=== PATIENT | male | born 2000 | race Caucasian/White ===

== ENCOUNTER 2020-09-02 13:16 | Inpatient (IN) | payer MEDICAID, SELFPAY ==
[~2020-09-02] VITALS: Ht 160 cm; Wt 53.5 kg
--- NOTE | 2020-09-02 13:20 | NUR ---
PATIENT W/C ASSISTED TO BED 1
--- NOTE | 2020-09-02 13:24 | NUR ---
Dr. Wagner is evaluating patient at bedside.
--- NOTE | 2020-09-02 13:25 | NUR ---
Marivel (Mom): [phone] Irlanda (Sister): [phone]
--- NOTE | 2020-09-02 13:25 | NUR ---
20 y/o m brought in by sister with c/c lethargy, SOB, low back pain. Pt's sister states at 0900, he began experiencing lower back pain. At 1200, sister rechecked up on patient and noticed he was more lethargic and slurred his words. Pt's sister also states associated SOB. Pt sister states he is noncompliant with his insulin medication. Pt presents A&Ox3, lethargic. Lung sounds CTA. air sampling and monitoring in place. Accuchek reading "HI." Bed locked in lowest position, side rails x 1. Sister at bedside. PMH: Type I DM Meds: Insulin Novalog NKA SX: denies
[2020-09-02] MEDS ORDERED: ONDANSETRON 4 MG/2 ML VIAL IVP STA (13:29)
[2020-09-02] MEDS ORDERED: NACL 0.9% 3,000 ML IV ONE (13:30)
[2020-09-02 13:32] VITALS: BP 110/75
--- NOTE | 2020-09-02 13:39 | NUR ---
Lab at bedside
--- NOTE | 2020-09-02 13:39 | NUR ---
EKG at bedside
[2020-09-02 13:49] LABS: HEMATOCRIT 54.1 % (36-52); HEMOGLOBIN 16.1 g/dL (12.0-18.0); MEAN CORPUSCULAR HEMOGLOBIN 31 pg (27-31); MEAN CORPUSCULAR HGB CONC 30 g/dL (33-37); MEAN CORPUSCULAR VOLUME 102.8 fL (80-94); PLATELET COUNT (AUTO) 426 K/uL (140-450); RED BLOOD CELL COUNT(AUTO) 5.26 MIL/uL (4.20-6.10); RED CELL DISTRIBUTION WIDTH 15.4 % (11.6-13.7)
[2020-09-02] MEDS ORDERED: INSULIN REGULAR, HUMAN 100 UNIT/ML VIAL IV STA (14:12)
[2020-09-02] MEDS ORDERED: SODIUM BICARBONATE 8.4% PFS 50 MEQ/50 ML SYR IVP STA (14:12)
[2020-09-02 14:14] LABS: ALBUMIN 3.9 g/dL (3.4-5.0); ANION GAP 41.2 (8-16); ASPARTATE AMINOTRANSFERASE 17 U/L (15-37); CHLORIDE 92 mmol/L (98-107); CREATININE 2.2 mg/dL (0.6-1.3); GFR ARICAN-AMERICAN 49 mL/min (>90); POTASSIUM 4.4 mmol/L (3.5-5.1); SALICYLATE 5.5 mg/dL (2.8-20.0); SODIUM SERUM 135 mmol/L (136-145); TOTAL BILIRUBIN 0.4 mg/dL (0.0-1.0); UREA NITROGEN, BLOOD 30 mg/dL (7-18); WHITE BLOOD COUNT (AUTO) 40.2 K/uL (4.8-10.8)
[2020-09-02] MEDS: DEXT 5% / NACL 0.45% 1,000 ML IV SCH (14:15)
[2020-09-02] MEDS ORDERED: INSULIN REGULAR, HUMAN 100 UNIT in NACL 0.9% 100 ML IV SCH ×4 (14:15→15:10)
--- NOTE | 2020-09-02 14:15 | NUR ---
Patient presents with both eyes closed, awakes to verbal stimuli. Pt accompanied by sister at bedside. secured entrance monitor in place. Equal chest rise and fall. Bed locked in lowest position, side rails x 1, call light in reach.
[2020-09-02] MEDS ORDERED: PIPERACILLIN/TAZOBACTAM 3.375 GM in DEXTROSE 5% 50 ML IV STA (14:16)
[2020-09-02] MEDS ORDERED: VANCOMYCIN 1,000 MG in DEXTROSE 5% 250 ML IV ONE (14:20)
--- NOTE | 2020-09-02 14:20 | NUR ---
Dr. Wagner made aware of critical lab values: CO2 6.2, Glucose 946, Lactic Acid 8.7.
[2020-09-02 14:21] LABS: CARBON DIOXIDE 6.2 mmol/L (21-32); GLUCOSE 946 mg/dL (74-106)
--- NOTE | 2020-09-02 14:23 | NUR ---
Xray at bedside
[2020-09-02 14:29] LABS: LYMPHOCYTES % (MANUAL) 20 % (20-46); METAMYELOCYTES % 1 % (0-0); MONOCYTES % (MANUAL) 1 % (5-12); PROMYELOCYTES % 2 % (0-0)
[2020-09-02] MEDS ORDERED: NACL 0.9% 2,000 ML IV SCH ×2 (14:35→15:00)
[2020-09-02 14:45] LABS: ACETAMINOPHEN < 0.5 ug/ml (10-30)
[2020-09-02] MEDS ORDERED: PIPERACILLIN/TAZOBACTAM 3.375 GM VIAL IV ONE ×2 (14:46→20:55)
[2020-09-02 14:52] LABS: ACETONE, SERUM MODERATE (NEGATIVE)
[2020-09-02] MEDS ORDERED: LORazepam 2 MG/ML VIAL IM/IVP PRN (15:00)
[2020-09-02] MEDS ORDERED: HYDROcodone/APAP 5/325 MG 1 TAB TAB PO PRN (15:00)
[2020-09-02] MEDS ORDERED: DOCUSATE SODIUM 100 MG GELCAP PO PRN (15:00)
[2020-09-02] MEDS ORDERED: ZOLPIDEM 5 MG TAB PO PRN (15:00)
[2020-09-02] MEDS ORDERED: MORPHINE SULFATE 2 MG/ML SYR IVP PRN (15:00)
[2020-09-02] MEDS ORDERED: ONDANSETRON 4 MG/2 ML VIAL IM/IVP PRN (15:00)
[2020-09-02] MEDS ORDERED: ACETAMINOPHEN 325 MG TAB PO PRN (15:00)
[2020-09-02] MEDS ORDERED: VANCOMYCIN PER PHARMACY MC PRN (15:05)
--- NOTE | 2020-09-02 15:09 | NUR ---
tap and die maker technician transported patient via gurney to CT.
--- NOTE | 2020-09-02 15:09 | NUR ---
Gilbert barreto in [facility] - 09/02/20 at 1509 by CHANDLER Xray transported patient via
[2020-09-02] MEDS ORDERED: DEXTROSE 50% 50 ML SYR IVP PRN (15:10)
--- NOTE | 2020-09-02 15:20 | NUR ---
Patient returned from CT via gurney and placed back onto rail bender.
--- NOTE | 2020-09-02 15:25 | NUR ---
Patient is resting in semi-fowlers position. youth nutritional monitor remains in place. Respirations even/unlabored; patient denies any pain or nausea at this time. Bed locked in lowest position, side rails x 1, call light in reach. Sister remains at bedside.
[2020-09-02] MEDS: BLOOD GLUCOSE MONITORING 1 DEV DEV FS SCH ×9 (15:38→23:09)
--- NOTE | 2020-09-02 15:45 | NUR ---
INFORMED HOUSE SUP OF ORDER OF PICC LINE FOR PATIENT.
[2020-09-02] MEDS ORDERED: VANCOMYCIN 1,000 MG in DEXTROSE 5% 250 ML IV SCH (16:00)
--- NOTE | 2020-09-02 16:00 | NUR ---
Urine sample collected, walked to lab and handed to linette Prince tech.
--- NOTE | 2020-09-02 16:05 | NUR ---
PICC line signature obtained for consent form.
--- NOTE | 2020-09-02 16:05 | NUR ---
Patient presents with both eyes open, semi-fowlers in position of comfort. Equal chest rise and fall. quality assurance monitor body in place. Bed locked in lowest position, side rails x 1, call light in reach. Sister at bedside.
--- NOTE | 2020-09-02 16:05 | NUR ---
Urine void discarded 900mL: clear/straw.
[2020-09-02] MEDS ORDERED: VANCOMYCIN 1,000 MG VIAL ONE (16:06)
[2020-09-02 16:07] LABS: MAGNESIUM 3.4 mg/dL (1.8-2.4)
[2020-09-02 16:19] LABS: PHOSPHORUS 14.2 mg/dL (2.5-4.9)
[2020-09-02 16:21] LABS: APPEARANCE,URINE SL CLOUDY (CLEAR); BILIRUBIN,URINE NEGATIVE (NEGATIVE); BLOOD, URINE TRACE-I (NEGATIVE); COLOR,URINE YELLOW (YELLOW); LEUKOCYTE ESTERASE ,URINE NEGATIVE (NEGATIVE); NITRITE, URINE NEGATIVE (NEGATIVE); PH,URINE 5.5 (5.0-9.0); UGLUCOSE 3+ (NEGATIVE)
[2020-09-02 16:23] LABS: PROTHROMBIN TIME 9.5 secs (10.8-13.4)
[2020-09-02 16:42] LABS: FINE GRANULAR CASTS,URINE 0-10 /LPF (None Seen); RBC,URINE 0-5 /HPF (0-5); WBC,URINE 0-5 /HPF (0-5)
[2020-09-02 16:43] LABS: BARBITURATE, URINE NEGATIVE ng/ml (NEG <=200); BENZODIAZEPINE, URINE NEGATIVE ng/mL (NEG <=200); CANNABINOID, URINE NEGATIVE ng/mL (NEG <=50); COCAINE, URINE NEGATIVE ng/mL (NEG <=300); OPIATE, URINE NEGATIVE ng/mL (NEG <=2000); PHENCYCLIDINE SCREEN,URINE NEGATIVE ng/mL (NEG <=25)
--- NOTE | 2020-09-02 16:55 | NUR ---
Lab at bedside
[2020-09-02] MEDS: NACL 0.9% 1,000 ML IV SCH ×3 (17:00→20:53)
--- NOTE | 2020-09-02 17:00 | NUR ---
Staci khanna collected, left with linette Prince in ER.
--- NOTE | 2020-09-02 17:03 | NUR ---
Dr. Tao is evaluating patient at bedside.
--- NOTE | 2020-09-02 17:05 | NUR ---
PICC line setup tray setup at bedside.
--- NOTE | 2020-09-02 17:06 | NUR ---
Patient is resting in semi-fowlers position. Pt accompanied by sister at bedside. Urinal in place. equalizer operator in place. Equal chest rise and fall. Bed locked in lowest position, side rails x 1, call light in reach.
--- NOTE | 2020-09-02 17:16 | NUR ---
PICC line nurse is at bedside performing procedure.
--- NOTE | 2020-09-02 17:33 | NUR ---
Xray at bedside to confirm placement.
[2020-09-02 17:35] LABS: ANION GAP 35.3 (8-16); CREATININE 1.5 mg/dL (0.6-1.3); POTASSIUM 4.8 mmol/L (3.5-5.1)
[2020-09-02 17:40] LABS: CARBON DIOXIDE 6.5 mmol/L (21-32)
--- NOTE | 2020-09-02 17:40 | NUR ---
Critical lab values received: Lactic acid 4.3, Glucose 550, Carbon dioxide 6.5. Dr. Freeman made aware via text message.
[2020-09-02] MEDS: CALCIUM ACETATE 667 MG TAB PO SCH (17:51)
--- NOTE | 2020-09-02 17:55 | NUR ---
Urine voided discard: 1100mL, clear/straw.
[2020-09-02 18:11] LABS: THYROID STIMULATING HORMONE 0.54 uIU/mL (0.34-3.74)
--- NOTE | 2020-09-02 18:28 | NUR ---
Patient presents with both eyes open, semi-fowlers in position of comfort. Equal chest rise and fall. gambling monitor in place. Bed locked in lowest position, side rails x 1, call light in reach. Mother at bedside.
[2020-09-02] MEDS ORDERED: LANTUS SUBQ (18:58)
[2020-09-02] MEDS ORDERED: SLIDE SUBQ (18:58)
--- NOTE | 2020-09-02 19:14 | NUR ---
Accuchek 339; insulin drip titrated from 5 Units/hr to 4 Units/hr.
--- NOTE | 2020-09-02 19:14 | NUR ---
Report and transfer of care given to SHANTI Cobian.
[2020-09-02 20:20] VITALS: BP 119/66
--- NOTE | 2020-09-02 20:20 | NUR ---
Patient will be admitted to care of dr. de la cruz. Admited to ICU. Will go to room3. Belongings list completed. Report to Aliza (joel) given.
--- NOTE | 2020-09-02 20:20 | NUR ---
ADMITTED PATIENT FROM ED VIA GOURNEY AWAKE ALERT AND ORIENTED ON INSULIN DRIP INFUSING THRU A RIGHT ANTECUBITAL IV AT 4 UNITS/HR.PATIENT WITH MAUNTENANCE IV INFUSING WELL THRU HIS PERIPHERAL IV ON RIGHT AC.PATIENT HAS A NEW PICC LINE ON RIGHT UPPER ARM.PATIENT BLOOD SUGAR IS CHECKED AND ITS 287MG/DL.PATIENT IS IN SINUS TACH IS AFEBRILKE AND IS SATURATING 100% ON ROOM AIR.PATIENT DENIES NAUSEA AT THIS TIME ATND PATIENT IS NPOI.DKA PROTOCOL COMMENCED AND ANOTHER IV OF DO.45NS STARTEWD WELL.
[2020-09-02 21:00] VITALS: BP 131/78
[2020-09-02] MEDS: PIPERACILLIN/TAZOBACTAM 3.375 GM in DEXTROSE 5% 50 ML IV SCH (21:00)
[2020-09-02 22:00] VITALS: BP 118/64
[2020-09-02 23:00] VITALS: BP 118/79
[2020-09-03] VITALS (23 sets, daily range): BP systolic 103–141; BP diastolic 67–88
--- NOTE | 2020-09-03 | NUR ---
PATIENT BLOOD SUGAR IS LESS THAN 200 AND MAINTENANCE IV IS D0.45NS IS INFUSING.PATIENT DENIES NAUSEA DOZING AND LOOKING COMFORTABLE.
[2020-09-03 00:38] LABS: ANION GAP 22.2 (8-16); CARBON DIOXIDE 13.3 mmol/L (21-32); CREATININE 1.1 mg/dL (0.6-1.3); POTASSIUM 3.5 mmol/L (3.5-5.1)
[2020-09-03 00:43] LABS: MAGNESIUM 1.7 mg/dL (1.8-2.4); PHOSPHORUS 2.1 mg/dL (2.5-4.9)
[2020-09-03] MEDS: BLOOD GLUCOSE MONITORING 1 DEV DEV FS SCH ×22 (01:02→23:20)
[2020-09-03] MEDS: NACL 0.9% 1,000 ML IV SCH ×6 (01:10→21:10)
[2020-09-03] MEDS: DEXT 5% / NACL 0.45% 1,000 ML IV SCH ×3 (02:21→21:46)
[2020-09-03] MEDS ORDERED: PIPERACILLIN/TAZOBACTAM 3.375 GM VIAL IV ONE (05:11)
[2020-09-03] MEDS: PIPERACILLIN/TAZOBACTAM 3.375 GM in DEXTROSE 5% 50 ML IV SCH ×3 (05:40→20:34)
[2020-09-03 05:59] LABS: ANION GAP 18.7 (8-16); CARBON DIOXIDE 15.6 mmol/L (21-32); POTASSIUM 3.3 mmol/L (3.5-5.1)
[2020-09-03 06:04] LABS: MAGNESIUM 1.7 mg/dL (1.8-2.4); PHOSPHORUS 2.3 mg/dL (2.5-4.9)
--- NOTE | 2020-09-03 07:30 | NUR ---
RECEIVED BEDSIDE REPORT FROM TRAILHEAD CONSTRUCTION WORKER NURSE. PATIENT IN BED, LAYING ON LEFT SIDE. AWAKE AND ALERT, ANSWERED TO NAME. URINAL NEAR BED. BAM PICC, LAC 20G, RAC 20, CLEAN DRY INTACT. INFUSING: D5 0.45% NS @ 200 ML/HR, INSULIN @ 0.05 UNIT/KG/HR. DKA PROTOCOL IN PLACE. BED IN LOW POSITION, CALL LIGHT WITHIN REACH. SAFETY MEASURES IN PLACE.
[2020-09-03] MEDS: CALCIUM ACETATE 667 MG TAB PO SCH ×3 (08:03→17:15)
--- NOTE | 2020-09-03 08:19 | NUR ---
ADMINISTERED SCHEDULED MEDS PER MD ORDER. MED EDUCATION PROVIDED, PATIENT VERBALIZES UNDERSTANDING. PO MEDS TOLERATED WELL, WITH SIPS OF WATER. PATIENT ASSISTED WITH REPOSITIONING, MINOR ASSISTANCE NEEDED. MORNING HYGIENE PROVIDED, CHANGED ALL DIRTY LINEN. BED IN LOW POSITION, SAFETY MEASURES IN PLACE.
--- NOTE | 2020-09-03 08:24 | NUR ---
PATIENT HAS BEEN SCREENED AND CATEGORIZED HIGH NUTRITION RISK. PATIENT WILL BE SEEN WITHIN 1-2 DAYS OF ADMISSION. 09/03/20-09/04/[address]
[2020-09-03 09:06] LABS: T4 (THYROXINE) 5.9 ug/dL (4.5-12.0)
[2020-09-03] MEDS ORDERED: BLOOD GLUCOSE MONITORING 1 DEV DEV FS SCH (09:30)
[2020-09-03] MEDS ORDERED: INSULIN REGULAR, HUMAN 100 UNIT in NACL 0.9% 100 ML IV SCH ×2 (09:30)
[2020-09-03] MEDS ORDERED: DEXTROSE 50% 50 ML SYR IVP PRN (09:30)
[2020-09-03] MEDS: VANCOMYCIN 750 MG in NACL 0.9% 250 ML IV SCH ×2 (09:51→21:39)
[2020-09-03] MEDS ORDERED: POTASSIUM CHL 40 MEQ/ D5-1/2NS 1,000 ML IV SCH (11:15)
[2020-09-03] MEDS ORDERED: POTASSIUM CHL 20 MEQ/D5-1/2NS 1,000 ML IV SCH (11:15)
--- NOTE | 2020-09-03 11:36 | NUR ---
NS NOT ADMINISTERED AT THIS TIME. RUNNING D5 0.45% NS PER DKA PROTOCOL.
[2020-09-03 11:37] LABS: ANION GAP 15.1 (8-16); CARBON DIOXIDE 19.2 mmol/L (21-32); CREATININE 1.2 mg/dL (0.6-1.3); POTASSIUM 3.3 mmol/L (3.5-5.1)
[2020-09-03 11:40] LABS: MAGNESIUM 1.7 mg/dL (1.8-2.4); PHOSPHORUS 2.6 mg/dL (2.5-4.9)
[2020-09-03] MEDS ORDERED: POTASSIUM CHL 20 MEQ/D5-1/2NS 1,000 ML IV ONE ×2 (11:50→16:00)
[2020-09-03] MEDS ORDERED: MAG SULF 2000 MG/WATER PREMIX 50 ML IV SCH (12:00)
[2020-09-03] MEDS ORDERED: KCL 20 MEQ/WATER INJ PREMIX 200 ML IV ONE (12:15)
--- NOTE | 2020-09-03 13:23 | NUR ---
09/03/20 RD INITIAL ASSESSMENT COMPLETED PLEASE REFER TO NUTRITION ASSESSMENT UNDER CARE ACTIVITY FOR ESTIMATED NUTRITIONAL NEEDS. 1. CONTINUE NPO PER DKA PROTOCOL 2. RD PROVIDED NUTRITION EDUCATION ON CONSISTENT CARBOHYDRATE INTAKE 3. ADVANCE TO [facility] [address] WHEN MEDICALLY STABLE 4. RD TO FOLLOW-UP 2-3 DAYS, HIGH RISK VINI JOHNSON RD
--- NOTE | 2020-09-03 14:00 | NUR ---
SOCIAL WORK NOTE: HERB WAS UNABLE TO MEET PATIENT AT BEDSIDE. HERB CONTACTED PATIENT'S SISTER ALIA SMALLS [phone] AND LEFT VM TO COMPLETE ASSESSMENT. HERB WILL FOLLOW UP. Addendum: 09/04/20 at 1214 by Blair Anderson SS HERB ATTEMPTED TO CONTACT PATIENT'S SISTER, ALIA SMALLS [phone] TO COMPLETE ASSESSMENT. HERB LEFT VM AND WILL FOLLOW UP.
[2020-09-03] MEDS ORDERED: POTASSIUM CHL 20 MEQ / DEXT 5% 1,000 ML IV ONE (16:00)
--- NOTE | 2020-09-03 17:30 | NUR ---
ADMINISTERED SCHEDULED MEDS PER MD ORDER. MED EDUCATION PROVIDED, PATIENT VERBALIZES UNDERSTANDING. MEDS TAKEN WELL WITH SIPS OF WATER. PATIENT ASSISTED TO TURN IN BED, SELF TURN, MINIMAL ASSISTANCE REQUIRED. Addendum: 09/03/20 at 1731 by Fernanda Smyth RN RN Amended: Links added.
--- NOTE | 2020-09-03 19:10 | NUR ---
CHECK PATIENT BLOOD SUGAR. PATIENT BLOOD SUGAR 142. PATIENT IS NOW HAVE A 4 CONSECUTIVE BLOOD SUGAR IN RANGE OF 90-150. PER PROTOCOL ONCE IT STABLE AND HAD A 4 CONSECUTIVE BLOOD SUGAR RANGE IN 90-150, BLOOD SUGAR MONITORING WILL BE Q2HR. NEXT BLOOD SUGAR MONITORING WILL BE AT 2110. Addendum: 09/04/20 at 0000 by Raj Pisano RN WRONG TIME. CORRECT TIME 1929
--- NOTE | 2020-09-03 19:20 | NUR ---
PATIENT ENDORSED TO GLUING MACHINE OFFBEARER NURSE FOR CONTINUITY OF CARE. PATIENT STABLE AT THIS TIME.
--- NOTE | 2020-09-03 19:21 | NUR ---
PATIENT ENDORSED TO EXTRUSION DIE REPAIR MANAGER NURSE FOR CONTINUITY OF CARE. PATIENT STABLE AT THIS TIME.
--- NOTE | 2020-09-03 19:25 | NUR ---
RECEIVED BEDSIDE REPORT FROM DAY SHIFT NURSE. PATIENT IS AWAKE, ALERT, AND COOPERATIVE. RESPIRATION EVEN UNLABORED ON ROOM AIR. NO DISTRESS NOTED. SKIN IS WARM AND DRY. RIGHT UPPER ARM PICC LINE NOTED WITH INSULIN DRIP RUNNING @ 0.05UNITS/KG/HR (3ML/HR), D5-1/2NS WITH KCL 20 MEQ RUNNING @ 250CC/HR AND POTASSIUM CHL 20MEQ RUNNING @ 50CC/HR. PLAN OF CARE WAS DISCUSSED. ALL SAFETY MEASURES IN PLACE. BED IS AT LOW POSITION. CALL LIGHT WITHIN REACH. WILL CONTINUE TO MONITOR
--- NOTE | 2020-09-03 20:35 | NUR ---
ALL SCHEDULED MEDS WERE GIVEN PER ORDER. WILL CONTINUE TO MONITOR
--- NOTE | 2020-09-03 21:40 | NUR ---
SCHEDULED VANCO IV GIVEN PER ORDER. WILL CONTINUE TO MONITOR
[2020-09-04] VITALS (12 sets, daily range): BP systolic 116–135; BP diastolic 69–90
--- NOTE | 2020-09-04 00:30 | NUR ---
PT SLEEPING. RESPIRATION EVEN UNLABORED ON ROOM AIR. NO DISTRESS NOTED. WILL CONTINUE TO MONITOR
[2020-09-04] MEDS: BLOOD GLUCOSE MONITORING 1 DEV DEV FS SCH ×8 (01:11→20:23)
[2020-09-04] MEDS: NACL 0.9% 1,000 ML IV SCH ×3 (02:10→12:46)
[2020-09-04] MEDS: DEXT 5% / NACL 0.45% 1,000 ML IV SCH (03:17)
[2020-09-04] MEDS: PIPERACILLIN/TAZOBACTAM 3.375 GM in DEXTROSE 5% 50 ML IV SCH ×3 (04:56→21:43)
--- NOTE | 2020-09-04 05:02 | NUR ---
IV ZOSYN ABX GIVEN PER ORDER. WILL CONTINUE TO MONITOR
[2020-09-04 06:17] LABS: ANION GAP 11.6 (8-16); CARBON DIOXIDE 22.2 mmol/L (21-32); CREATININE 0.8 mg/dL (0.6-1.3)
[2020-09-04 06:23] LABS: POTASSIUM 2.8 mmol/L (3.5-5.1)
[2020-09-04] MEDS ORDERED: WATER IV SCH (06:40)
[2020-09-04] MEDS ORDERED: KCL IV SCH (06:40)
--- NOTE | 2020-09-04 06:43 | NUR ---
RECEIVED CRITICAL LAB VALUE OF POTASSIUM 2.8. REPORTED TO DR. DINH. PER MD ORDER 80MEQ K-RIDER X 1 DOSE. READ BACK AND VERIFIED.
--- NOTE | 2020-09-04 07:15 | NUR ---
RECEIVED BEDSIDE REPORT FROM STOVE CARRIAGE OPERATOR NURSE. PATIENT IN BED ASLEEP, RESPONDS TO NAME. BREATHING EVEN AND UNLABORED, NO SIGNS OF ACUTE DISTRESS NOTED. URINAL AT BEDSIDE. BAM PICC, LAC 20 G, R AC 20 G, CLEAN DRY INTACT. INFUSING: D5 0.45% NS @ 200 ML/HR. INSULIN @ 0.05 UNIT/KG/HR. BED IN LOW POSITION. CARE ADMINISTRATIVE TECH IN PLACE, SAFETY MEASURES IN PLACE, DKA PROTOCOL IN PLACE.
--- NOTE | 2020-09-04 07:17 | NUR ---
ENDORSED PATIENT TO DAY SHIFT NURSE AT BEDSIDE FOR CONTINUITY OF CARE.
[2020-09-04] MEDS: VANCOMYCIN 750 MG in NACL 0.9% 250 ML IV SCH (08:34)
[2020-09-04] MEDS ORDERED: POTASSIUM CHLORIDE 40 MEQ, LIDOCAINE MPF 1% 25 MG in NACL 0.9% 250 ML IV PRN (08:45)
[2020-09-04] MEDS ORDERED: DEXTROSE 50% 50 ML SYR IVP PRN (08:45)
[2020-09-04] MEDS ORDERED: VANCOMYCIN IV SCH (09:00)
[2020-09-04] MEDS ORDERED: NACL 0.9% IV SCH (09:00)
[2020-09-04] MEDS: metFORMIN 500 MG TAB PO SCH ×2 (09:10→17:01)
[2020-09-04] MEDS ORDERED: VANCOMYCIN 1,000 MG in NACL 0.9% 250 ML IV SCH ×2 (09:16→13:00)
[2020-09-04] MEDS: INSULIN LANTUS 100 UNITS/ML 10 ML VIAL SUBQ SCH (10:16)
[2020-09-04 10:43] LABS: FOLIC ACID > 20.00 ng/mL (>3.0)
[2020-09-04] MEDS: INSULIN LISPRO SLIDING SCALE 100 UNITS/ML VIAL SUBQ PRN ×3 (11:49→20:26)
--- NOTE | 2020-09-04 12:40 | NUR ---
PATIENT ENDORSED TO MED SURG NURSE FOR CONTINUITY OF CARE. PATIENT STABLE AT THIS TIME.
--- NOTE | 2020-09-04 12:45 | NUR ---
RECEIVED PATIENT FROM ICU NURSE SHANTI BENZ. PATIENT AWAKE ALERT AND ORIENTED X3. RESP EVEN AND UNLABORED ON ROOM AIR. DENIED OF PAIN AT THIS TIME. PATIENT AMBULATORY. ABLE TO MAKE NEEDS KNOWN. BAM PICC INTACT AND PATENT INFUSING NS 75ML/HR. RAC 20G AND LAC 20G INTACT AND PATENT. PLAN OF CARE DISCUSSED. PATIENT VERBALIZED UNDERSTANDING. CALL LIGHT WITHIN REACH. WILL CONTINUE TO MONITOR.
[2020-09-04 12:54] LABS: BASOPHILS # (AUTO) 0.2 K/uL (0.00-0.22); BASOPHILS % (AUTO) 1.4 % (0.0-2.0); EOSINOPHILS # (AUTO) 0.2 K/uL (0-0.4); EOSINOPHILS % (AUTO) 1.2 % (0.0-4.0); HEMATOCRIT 34.9 % (36-52); HEMOGLOBIN 11.5 g/dL (12.0-18.0); LYMPHOCYTES # (AUTO) 3.3 K/uL (2.0-11.5); LYMPHOCYTES % (AUTO) 24.1 % (20.5-51.1); MEAN CORPUSCULAR HEMOGLOBIN 31 pg (27-31); MEAN CORPUSCULAR HGB CONC 33 g/dL (33-37); MEAN CORPUSCULAR VOLUME 92.6 fL (80-94); MONOCYTES # (AUTO) 1.3 K/uL (0.8-1.0); MONOCYTES % (AUTO) 9.8 % (1.7-9.3); NEUTROPHILS # (AUTO) 8.7 K/uL (1.8-7.7); NEUTROPHILS % (AUTO) 63.5 % (42.2-75.2); PLATELET COUNT (AUTO) 210 K/uL (140-450); RED BLOOD CELL COUNT(AUTO) 3.77 MIL/uL (4.20-6.10); RED CELL DISTRIBUTION WIDTH 14.6 % (11.6-13.7); WHITE BLOOD COUNT (AUTO) 13.7 K/uL (4.8-10.8)
[2020-09-04] MEDS ORDERED: VANCOMYCIN 750 MG in NACL 0.9% 250 ML IV SCH (14:00)
--- NOTE | 2020-09-04 14:11 | NUR ---
PATIENT IN BED SLEEPING, CHEST NOTED RISING. NO NOTED DISTRESS. CALL LIGHT WITHIN REACH. WILL CONTINUE TO MONITOR.
--- NOTE | 2020-09-04 16:20 | NUR ---
ENDORSED PATIENT TO SAUL RN FOR CONTINUITY OF CARE. PATIENT IN STABLE CONDITION.
--- NOTE | 2020-09-04 16:20 | NUR ---
RECEIVED REPORT FROM NURSE HUBER FOR CONTINUITY OF CARE. PT IS STABLE, PT RESTING IN BED. PT HAS BAM PICC LINE, 20G RAC INFUSING POTASSIUM AND NS AT 75. 20G LAC SALINE LOCK. SKIN INTACT. PT ON ROOM AIR. SAFETY MEASURES IN PLACE, WILL CONTINUE TO MONITOR
--- NOTE | 2020-09-04 17:04 | NUR ---
ADMINISTERED SCHEDULED MEDICATION, 6 UNITS OF HUMALOG ADMINISTERED FOR BLOOD GLUCOSE OF 253, MEDICATION EDUCATION PROVIDED. PT TOLERATED WELL. PT IS STABLE, WILL CONTINUE TO MONITOR.
--- NOTE | 2020-09-04 19:10 | NUR ---
ENDORSE PT TO NIGHT NURSE FOR CONTINUITY OF CARE.
--- NOTE | 2020-09-04 19:11 | NUR ---
RECEIVED BEDSIDE ENDORSEMENT FROM AM SHIFT RN. PT IS AAOX4, ON ROOM AIR, NO DISTRESS, IVF INFUSING, SAFETY MEASURES IN PLACE, BED IN LOW POSITION, PLAN OF CARE DISCUSSED, CALL LIGHT WITHIN REACH.
[2020-09-04] MEDS: VANCOMYCIN 1,000 MG in NACL 0.9% 250 ML IV SCH (20:14)
--- NOTE | 2020-09-04 20:30 | NUR ---
PT IS TALKING ON THE PHONE, VANCO IV GIVEN ORDERED, NO A/R NOTED, OTHER DUE MEDS GIVEN ORDERED. CALL LIGHT WITHIN REACH.
--- NOTE | 2020-09-04 21:47 | NUR ---
ZOSYN IVPB GIVEN ORDERED, NO A/R NOTED, CALL LIGHT WITHIN REACH.
--- NOTE | 2020-09-04 23:50 | NUR ---
PT ASKED FOR A SNACK. GAVE SANDWICH AND WATER, WILL CONTINUE TO MONITOR, CALL LIGHT WITHIN REACH.
[2020-09-05] MEDS: NACL 0.9% 1,000 ML IV SCH (02:45)
[2020-09-05 04:00] VITALS: BP 125/83
[2020-09-05] MEDS: PIPERACILLIN/TAZOBACTAM 3.375 GM in DEXTROSE 5% 50 ML IV SCH (05:16)
--- NOTE | 2020-09-05 05:18 | NUR ---
ZOSYN IVPB GIVEN ORDERED, NO A/R NOTED, CALL LIGHT WITHIN REACH.
[2020-09-05] MEDS: VANCOMYCIN 1,000 MG in NACL 0.9% 250 ML IV SCH (05:46)
[2020-09-05] MEDS: BLOOD GLUCOSE MONITORING 1 DEV DEV FS SCH (06:15)
[2020-09-05] MEDS: INSULIN LISPRO SLIDING SCALE 100 UNITS/ML VIAL SUBQ PRN ×2 (06:17→09:33)
--- NOTE | 2020-09-05 06:19 | NUR ---
BS 273. HUMALOG 6UNITS SQ PER SLIDING SCALE GIVEN.
--- NOTE | 2020-09-05 07:39 | NUR ---
PT STABLE, NO DISTRESS, ALL NEEDS ATTENDED, BEDSIDE ENDORSEMENT GIVEN TO AM SHIFT RN FOR CONTINUITY OF CARE.
--- NOTE | 2020-09-05 07:41 | NUR ---
RECEIVED BEDSIDE REPORT FROM HOGSHEAD WRECKER RN. PT IS AAOX4, ON ROOM AIR, NO DISTRESS NOTED. HAS BAM PICC LINE AND IV SITE ON RAC AND LAC 20 G. INTACT AND PATENT. SKIN IS WARM AND DRY. DISCUSSED PLAN OF CARE. SAFETY MEASURES IN PLACE, BED IN LOW POSITION, CALL LIGHT WITHIN REACH. WILL CONTINUE TO MONITOR.
[2020-09-05 08:56] LABS: CARBON DIOXIDE 24.2 mmol/L (21-32); CREATININE 0.8 mg/dL (0.6-1.3); POTASSIUM 3.2 mmol/L (3.5-5.1)
--- NOTE | 2020-09-05 09:00 | NUR ---
PATIENT SEEN BY DR. DINH. SPOKE TO THE PATIENT REGARDING PLAN OF CARE TODAY. PATIENT WILL POSSIBLY BE DISCHARGED TODAY.
[2020-09-05 09:14] LABS: BASOPHILS # (AUTO) 0.1 K/uL (0.00-0.22); BASOPHILS % (AUTO) 0.9 % (0.0-2.0); EOSINOPHILS # (AUTO) 0.1 K/uL (0-0.4); EOSINOPHILS % (AUTO) 1.6 % (0.0-4.0); HEMATOCRIT 38.5 % (36-52); LYMPHOCYTES # (AUTO) 2.3 K/uL (2.0-11.5); MEAN CORPUSCULAR HEMOGLOBIN 31 pg (27-31); MEAN CORPUSCULAR HGB CONC 34 g/dL (33-37); MEAN CORPUSCULAR VOLUME 91.5 fL (80-94); MONOCYTES # (AUTO) 0.8 K/uL (0.8-1.0); MONOCYTES % (AUTO) 10.7 % (1.7-9.3); NEUTROPHILS # (AUTO) 4.1 K/uL (1.8-7.7); NEUTROPHILS % (AUTO) 55.8 % (42.2-75.2); PLATELET COUNT (AUTO) 210 K/uL (140-450); RED BLOOD CELL COUNT(AUTO) 4.21 MIL/uL (4.20-6.10); RED CELL DISTRIBUTION WIDTH 14.5 % (11.6-13.7); WHITE BLOOD COUNT (AUTO) 7.4 K/uL (4.8-10.8)
--- NOTE | 2020-09-05 09:20 | NUR ---
ALL SCHEDULED MEDS GIVEN. PT IS STABLE. NO DISTRESS NOTED. WILL CONTINUE TO MONITOR.
[2020-09-05] MEDS: metFORMIN 500 MG TAB PO SCH (09:27)
[2020-09-05] MEDS: INSULIN LANTUS 100 UNITS/ML 10 ML VIAL SUBQ SCH (09:31)
[2020-09-05] MEDS ORDERED: POTA10TE30 PO (10:12)
[2020-09-05] MEDS ORDERED: LANTUS SUBQ (10:12)
--- NOTE | 2020-09-05 10:34 | NUR ---
SPOKE TO DR. DINH. HE SAID TO DC VBG SINCE ITS NOT REQUIRED AND PATIENT BEING DISCHARGED.
[2020-09-05 10:53] VITALS: BP 124/89
[2020-09-05] MEDS ORDERED: POTASSIUM CHLORIDE 10 MEQ TABER PO SCH (10:56)
[2020-09-05] MEDS ORDERED: METF1000 PO (11:48)
--- NOTE | 2020-09-05 11:50 | NUR ---
EDUCATED PATIENT ON DISCHARGE INSTRUCTIONS. PATIENT VERBALIZED UNDERSTANDING AND SIGNED FORMS. ADMINISTERED K-DUR PRIOR TO DISCHARGE DUE TO LOW POTASSIUM. REMOVED ALL IV LINES LINES. PATIENT WAS STABLE AND DISCHARGED OFF THE UNIT.
== END 2020-09-05 11:45 | disposition home or self-care (01) | DRG 720 ==
LOC: MED 13:16 → MTU 15:02 → MIC 20:16 → MMU 09-04 12:43
PROC: 02HV33Z Insertion of Infusion Device into Superior Vena Cava, Percutaneous Approach (ICD-10-PCS; principal; 2020-09-02)
DX: A41.9 Sepsis, unspecified organism (principal); E10.10 Type 1 diabetes mellitus with ketoacidosis without coma; N17.0 Acute kidney failure with tubular necrosis; E87.1 Hypo-osmolality and hyponatremia; D75.89 Other specified diseases of blood and blood-forming organs; E87.6 Hypokalemia; D72.829 Elevated white blood cell count, unspecified; E86.0 Dehydration; G92 Toxic encephalopathy; E83.51 Hypocalcemia; Z20.822 Contact with and (suspected) exposure to COVID-19; Z79.4 Long term (current) use of insulin; Z91.19 Patient's noncompliance with other medical treatment and regimen; Z83.3 Family history of diabetes mellitus; Z82.49 Family history of ischemic heart disease and other diseases of the circulatory system
CPT/HCPCS: 36415; 70450; 71045; 80048; 80053; 80202; 80305; 81001; 81003; 82009; 82140; 82150; 82550; 82607; 82746; 82803; 82948; 83036; 83605; 83690; 83735; 83880; 83930; 84100; 84134; 84436; 84443; 84484; 85025; 85610; 85730; 87040; 87081; 87086; 93005; 96374; 96375; 99291; C1758; G0480; G0482; J1644; J1815; J2001; J2405; J2543; J3370; J3475; J3480; J7030; J7060

== ENCOUNTER 2020-10-22 19:17 | Emergency (ER) | payer MEDICAID, SELFPAY ==
[~2020-10-22] VITALS: Ht 170.2 cm; Wt 55.3 kg
[~2020-10-22 19:17] MED LIST: LANTUS SUBQ; METF1000 PO; POTA10TE30 PO; SLIDE SUBQ
[2020-10-22 19:33] VITALS: BP 126/98
--- NOTE | 2020-10-22 19:33 | NUR ---
TO BED AMBULATORY
--- NOTE | 2020-10-22 19:37 | NUR ---
Dr. Lux examining patient.
--- NOTE | 2020-10-22 19:43 | NUR ---
20 Y.O MALE PRESENTS TO THE ED WITH HIGH BLOOD SUGAR OF 301. PT REPORTS HAVING A BG OF 552. DENIES N/V AND PAIN. SKIN IS PINK/WARM/DRY; AAOX4 WITH EVEN AND STEADY GAIT; LUNGS CLEAR BL; HR EVEN AND REGULAR; PT DENIES ANY FEVER, CP, SOB, OR COUGH AT THIS TIME;VSS; PATIENT POSITIONED FOR COMFORT; HOB ELEVATED; BEDRAILS UP X2; BED DOWN. ER MD MADE AWARE OF PT STATUS. PMH: DIABETES ALLERGIES: NKA
[2020-10-22 20:08] VITALS: BP 126/98
--- NOTE | 2020-10-22 20:15 | NUR ---
Patient discharged with v/s stable. Written and verbal after care instructions given and explained. Patient verbalized understanding. Ambulatory with steady gait. ID band remove. All questions addressed prior to discharge. Advised to follow up with PMD.
== END 2020-10-22 20:15 | disposition home or self-care (01) ==
LOC: MED 19:17
DX: E10.65 Type 1 diabetes mellitus with hyperglycemia (principal); Z79.84 Long term (current) use of oral hypoglycemic drugs; Z79.899 Other long term (current) drug therapy
CPT/HCPCS: 99282